=== PATIENT | male | born 1970 | race Caucasian/White ===

== ENCOUNTER 2023-11-05 13:31 | Inpatient (IN) | payer OTHER ==
[2023-11-05 14:10] VITALS: BMI 44.9
[2023-11-05] MEDS ORDERED: POLYETHYLENE GLYCOL (HEALTHYLAX) 3350 17 GM PACKET PO PRN (15:48)
[2023-11-05] MEDS ORDERED: BENZOCAINE/MENTHOL (CHLORASEPTIC ) LOZENGE MM PRN (15:48)
[2023-11-05] MEDS ORDERED: MAG HYDROX/AL HYDROX/SIMETH 30 ML UNIT-DOSE CUP PO PRN (15:48)
[2023-11-05] MEDS ORDERED: DICYCLOMINE HCL 10 MG CAPSULE PO PRN (15:48)
[2023-11-05] MEDS ORDERED: IBUPROFEN 400 MG TABLET (FP) PO PRN (15:48)
[2023-11-05] MEDS ORDERED: LOPERAMIDE HCL 2 MG CAPSULE PO PRN (15:48)
[2023-11-05] MEDS ORDERED: guaiFENesin 600 MG TABLET.ER (FP) PO PRN (15:48)
[2023-11-05] MEDS ORDERED: MAGNESIUM HYDROX 2400MG/30ML ORAL SUSPENSION 30 ML CUP PO PRN (15:48)
[2023-11-05] MEDS ORDERED: METHOCARBAMOL 500 MG TABLET PO PRN (15:48)
[2023-11-05] MEDS ORDERED: BENZONATATE 200 MG CAPSULE PO PRN (15:48)
[2023-11-05] MEDS ORDERED: BISMUTH SUBSALICYLATE 524 MG/30 ML PO PRN (15:48)
[2023-11-05] MEDS ORDERED: hydrOXYzine PAMOATE 25 MG CAPSULE (FP) PO PRN (15:48)
[2023-11-05] MEDS ORDERED: chlordiazePOXIDE HCL 25 MG CAPSULE PO PRN (15:51)
[2023-11-05] MEDS ORDERED: chlordiazePOXIDE HCL 25 MG CAPSULE ONE (17:31)
[2023-11-05] MEDS: chlordiazePOXIDE HCL 25 MG CAPSULE PO SCH (17:33)
[2023-11-05] MEDS: THIAMINE 100 MG TABLET PO SCH (22:12)
[2023-11-05] MEDS: MELATONIN 5 MG TABLETS PO SCH (22:12)
[2023-11-06] MEDS: ACETAMINOPHEN 325 MG TABLET (FP) PO PRN (06:00)
[2023-11-06] MEDS: ONDANSETRON *ODT* 4 MG TABLET SL PRN (09:26)
[2023-11-06] MEDS: PRENATAL VITAMINS W/ FOLIC ACID TABLET (FP) PO SCH (10:22)
[2023-11-06] MEDS: ESCITALOPRAM OXALATE 20 MG TABLET PO SCH (10:23)
[2023-11-06 10:27] LABS: HEMATOCRIT 40.5 % (35.4-49); HEMOGLOBIN 13.5 GM/dL (11.7-16.9); MCH 26.8 pg (25.7-33.7); MCHC 33.3 g/dl (32.0-35.9); MEAN CELL VOLUME 80.6 fl (80-96); MEAN PLT VOLUME 8.4 fl (7.5-11.1); PLATELET COUNT 225 10^3/uL (134-434); RBC 5.03 M/mm3 (4.00-5.60); WHITE BLOOD COUNT 6.1 K/mm3 (4.0-10.0)
[2023-11-06 10:46] LABS: CALCIUM 8.5 mg/dL (8.5-10.1)
[2023-11-06 10:47] LABS: ALBUMIN 3.4 g/dl (3.4-5.0); BLOOD UREA NITROGEN 15.2 mg/dL (7-18)
[2023-11-06 10:50] LABS: CREATININE 0.9 mg/dL (0.55-1.3)
[2023-11-06 10:51] LABS: TOT PROT 6.7 g/dl (6.4-8.2)
[2023-11-06 10:52] LABS: BILIRUBIN,TOTAL 0.5 mg/dL (0.2-1)
[2023-11-06] MEDS: INSULIN ASPART SLIDING SCALE (NOVOLOG) 1 VIAL SQ SCH (17:40)
[2023-11-06] MEDS: risperiDONE 2 MG TABLET PO SCH (22:03)
[2023-11-06] MEDS: IBUPROFEN 600 MG TABLET (FP) PO PRN (22:04)
[2023-11-07] MEDS: chlordiazePOXIDE HCL 25 MG CAPSULE PO SCH (05:20)
[2023-11-08] MEDS ORDERED: chlordiazePOXIDE HCL 10 MG CAPSULE PO PRN
[2023-11-08] MEDS: chlordiazePOXIDE HCL 10 MG CAPSULE PO SCH (05:18)
[2023-11-08] MEDS: risperiDONE 1 MG TABLET PO SCH (21:56)
[2023-11-09] MEDS: chlordiazePOXIDE HCL 10 MG CAPSULE PO SCH (05:51)
[2023-11-10] MEDS: chlordiazePOXIDE HCL 10 MG CAPSULE PO ONE (05:25)
[2023-11-10 12:24] LABS: HEMATOCRIT 38.5 % (35.4-49); MCH 27.6 pg (25.7-33.7); MCHC 33.9 g/dl (32.0-35.9); MEAN CELL VOLUME 81.4 fl (80-96); MEAN PLT VOLUME 8.8 fl (7.5-11.1); PLATELET COUNT 191 10^3/uL (134-434); RBC 4.73 M/mm3 (4.00-5.60); RDW 15.6 % (11.9-15.9); WHITE BLOOD COUNT 7.4 K/mm3 (4.0-10.0)
[2023-11-10 12:28] LABS: POTASSIUM 4.5 mmol/L (3.5-5.1)
[2023-11-10 12:32] LABS: BLOOD UREA NITROGEN 23.4 mg/dL (7-18); CALCIUM 8.8 mg/dL (8.5-10.1)
[2023-11-10 12:34] LABS: CREATININE 0.8 mg/dL (0.55-1.3)
[2023-11-10 13:35] LABS: ANISOCYTOSIS 0; MACROCYTOSIS 0
[2023-11-11] MEDS ORDERED: INSULIN (NOVOLOG) ASPART 100 UNITS/ML 10ML VIAL SQ SCH (11:00)
[2023-11-11 12:13] VITALS: BP 107/67; PULSE 89; RESP 18; TEMP 98.2
== END 2023-11-11 11:45 | disposition other institution (70) | DRG 775 ==
LOC: YASAS 13:31 → Y3N 17:27
PROVIDERS: ADMIT Allergy & Immunology; ATTEND Surgery
PROC: HZ2ZZZZ Detoxification Services for Substance Abuse Treatment (ICD-10-PCS; principal; 2023-11-05)
DX: F10.230 Alcohol dependence with withdrawal, uncomplicated (principal); F12.20 Cannabis dependence, uncomplicated; F19.24 Other psychoactive substance dependence with psychoactive substance-induced mood disorder; F25.1 Schizoaffective disorder, depressive type; E11.9 Type 2 diabetes mellitus without complications; Z79.4 Long term (current) use of insulin; Z56.0 Unemployment, unspecified; Z59.00 Homelessness unspecified
CPT/HCPCS: 36415; 71045-TC-FY; 80048; 80053; 80305; 82962; 85025; 85027; 86780; 87811; 93005; 93010; Q0162

== ENCOUNTER 2023-11-11 11:49 | Inpatient (IN) | payer OTHER ==
[2023-11-11] MEDS ORDERED: hydrOXYzine PAMOATE 25 MG CAPSULE (FP) PO PRN (15:13)
[2023-11-11] MEDS ORDERED: NALOXONE HCL 0.4 MG/ML VIAL IVPUSH PRN (15:13)
[2023-11-11] MEDS ORDERED: ACETAMINOPHEN 325 MG TABLET (FP) PO PRN (15:13)
[2023-11-11] MEDS ORDERED: BENZOCAINE/MENTHOL (CHLORASEPTIC ) LOZENGE MM PRN (15:13)
[2023-11-11] MEDS ORDERED: BENZONATATE 200 MG CAPSULE PO PRN (15:13)
[2023-11-11] MEDS ORDERED: NICOTINE POLACRILEX 4 MG LOZENGE BC PRN (15:13)
[2023-11-11] MEDS ORDERED: IBUPROFEN 400 MG TABLET (FP) PO PRN (15:13)
[2023-11-11] MEDS ORDERED: MAG HYDROX/AL HYDROX/SIMETH 30 ML UNIT-DOSE CUP PO PRN (15:13)
[2023-11-11] MEDS ORDERED: POLYETHYLENE GLYCOL (HEALTHYLAX) 3350 17 GM PACKET PO PRN (15:13)
[2023-11-11] MEDS ORDERED: LOPERAMIDE HCL 2 MG CAPSULE PO PRN (15:13)
[2023-11-11] MEDS ORDERED: METHOCARBAMOL 500 MG TABLET PO PRN (15:13)
[2023-11-11] MEDS ORDERED: guaiFENesin 600 MG TABLET.ER (FP) PO PRN (15:13)
[2023-11-11] MEDS ORDERED: NICOTINE POLACRILEX 4 MG GUM BUC PRN (15:13)
[2023-11-11] MEDS ORDERED: IBUPROFEN 600 MG TABLET (FP) PO PRN (15:13)
[2023-11-11] MEDS ORDERED: NALOXONE (NARCAN) HCL 4 MG/0.1 ML SPRAY NS PRN (15:13)
[2023-11-11] MEDS ORDERED: MAGNESIUM HYDROX 2400MG/30ML ORAL SUSPENSION 30 ML CUP PO PRN (15:13)
[2023-11-11] MEDS: NICOTINE 21 MG/24 HOURS TOPICAL PATCH TD SCH (15:44)
[2023-11-11] MEDS: INSULIN ASPART SLIDING SCALE (NOVOLOG) 1 VIAL SQ SCH (16:38)
[2023-11-11] MEDS: THIAMINE 100 MG TABLET PO SCH (21:04)
[2023-11-11] MEDS: MELATONIN 5 MG TABLETS PO SCH (21:04)
[2023-11-11] MEDS: risperiDONE 2 MG TABLET PO SCH (21:05)
[2023-11-12] MEDS ORDERED: ESCITALOPRAM OXALATE 10 MG TABLET ONE (09:56)
[2023-11-12] MEDS: ESCITALOPRAM OXALATE 20 MG TABLET PO SCH (09:57)
[2023-11-12] MEDS: PRENATAL VITAMINS W/ FOLIC ACID TABLET (FP) PO SCH (09:57)
[2023-11-12] MEDS ORDERED: INSULIN (NOVOLOG) ASPART 100 UNITS/ML 10ML VIAL ONE (16:47)
[2023-11-13] MEDS ORDERED: ESCITALOPRAM OXALATE 10 MG TABLET ONE (10:02)
[2023-11-16] MEDS ORDERED: ESCITALOPRAM OXALATE 10 MG TABLET ONE (10:04)
[2023-11-18] MEDS ORDERED: ESCITALOPRAM OXALATE 10 MG TABLET ONE (09:34)
[2023-11-19] MEDS ORDERED: ESCITALOPRAM OXALATE 10 MG TABLET ONE (09:56)
[2023-11-21] MEDS ORDERED: ESCITALOPRAM OXALATE 10 MG TABLET ONE (09:52)
[2023-11-22] MEDS ORDERED: ESCITALOPRAM OXALATE 10 MG TABLET ONE (09:57)
[2023-11-24] MEDS ORDERED: ESCITALOPRAM OXALATE 10 MG TABLET ONE (09:52)
[2023-11-25 06:23] VITALS: RESP 16; TEMP 97.1
[2023-11-25] MEDS ORDERED: ESCITALOPRAM OXALATE 10 MG TABLET ONE (10:12)
[2023-11-26 06:30] VITALS: BP 110/76; PULSE 88
[2023-11-26] MEDS ORDERED: ESCITALOPRAM OXALATE 10 MG TABLET ONE (09:04)
== END 2023-11-26 09:20 | disposition home or self-care (01) | DRG 772 ==
LOC: YASAS 11:49 → Y3E 11:51
PROVIDERS: ADMIT Allergy & Immunology; ATTEND Psychiatry & Neurology Pain Medicine
PROC: HZ42ZZZ Group Counseling for Substance Abuse Treatment, Cognitive-Behavioral (ICD-10-PCS; principal; 2023-11-11)
DX: F12.20 Cannabis dependence, uncomplicated (principal); F10.20 Alcohol dependence, uncomplicated; F17.210 Nicotine dependence, cigarettes, uncomplicated; F25.1 Schizoaffective disorder, depressive type; F19.24 Other psychoactive substance dependence with psychoactive substance-induced mood disorder; E11.9 Type 2 diabetes mellitus without complications; Z79.4 Long term (current) use of insulin; Z86.69 Personal history of other diseases of the nervous system and sense organs; Z59.01 Sheltered homelessness
CPT/HCPCS: 36415; 82140; 82962; 86803; 87522